=== PATIENT | male | born 1935 | race Hispanic/Latino ===

== ENCOUNTER → 2017-09-05 | Outpatient (CLI) | payer MEDICARE ==
[~2017-09-05] MED LIST: ASPI-1181 PO; ASPI-1197 PO; CETI10TA57 PO; CLOP75TA14 PO; DUTA0.5C15 PO; HYOS-28 PO; ISOS30TA6 PO; MECL-111 PO; PHEN-948 PO; PREG100C PO; RANI150T7 PO; ROSU10TA PO; TAMS0.4C32 PO; TRAM50TA4 PO; VALS160T28 PO
== END | disposition home or self-care (01) ==
LOC: SHCH 14:50
PROVIDERS: ATTEND Internal Medicine Cardiovascular Disease
DX: I42.9 Cardiomyopathy, unspecified (principal)
CPT/HCPCS: 93306

== ENCOUNTER 2017-10-11 05:30 | Day surgery (SDC) | payer MEDICARE ==
[2017-10-09 09:56] VITALS: BP 147/73
[2017-10-09 10:06] LABS: BASOPHILS % (AUTO) 0.5 % (0.0-5.0); EOSINOPHILS % (AUTO) 1.9 % (0.0-8.0); HEMATOCRIT 43.9 % (42-54); MEAN CORPUSCULAR HEMOGLOBIN 29.7 pg (27.0-33.0); MEAN CORPUSCULAR HGB CONC 33.4 g/dL (32.0-36.0); MEAN CORPUSCULAR VOLUME 88.9 fL (79-99); MONOCYTES % (AUTO) 5.4 % (3.0-13.0); NEUTROPHILS % (AUTO) 69.2 % (40.0-77.0); NUCLEATED RED BLOOD CELLS 0.1 % (0.0-0.19); PLATELET COUNT (AUTO) 183 K/uL (130-400); RED BLOOD CELL COUNT(AUTO) 4.94 MIL/uL (4.50-6.20); WHITE BLOOD COUNT (AUTO) 8.8 K/uL (4.8-10.8)
[2017-10-09 10:12] LABS: APPEARANCE,URINE Clear (CLEAR); BILIRUBIN,URINE Negative (NEGATIVE); COLOR,URINE Yellow (YELLOW); GLUCOSE, URINE (UA) Negative (NEGATIVE); KETONES,URINE Negative (NEGATIVE); LEUKOCYTE ESTERASE ,URINE Negative (NEGATIVE); NITRATE,URINE Negative (NEGATIVE); OCCULT BLOOD,URINE Negative (NEGATIVE); PROTEIN,URINE Negative (NEGATIVE); UROBILINOGEN,URINE 0.2 mg/dL (0.2-1.0)
[2017-10-09 10:14] LABS: CREATININE 1.4 mg/dL (0.5-1.5); POTASSIUM 4.8 mmol/L (3.5-5.1)
[2017-10-09 10:47] LABS: INR 1.01 (0.85-1.15); PARTIAL THROMBOPLASTIN TIME 25.8 SEC (26.3-35.5); PROTHROMBIN TIME 10.4 SEC (9.6-11.6)
[~2017-10-11] VITALS: Ht 177.8 cm; Wt 98.1 kg
[2017-10-11] VITALS (10 sets, daily range): BP systolic 108–167; BP diastolic 54–82
[~2017-10-11 05:30] MED LIST changes: -ASPI-1197 PO; -DUTA0.5C15 PO; +DUTA0.5C17 PO; -HYOS-28 PO; -ISOS30TA6 PO; -PHEN-948 PO; -VALS160T28 PO; +VALS160T29 PO
[2017-10-11] MEDS ORDERED: SODIUM CHLORIDE 0.9% 1000ML 1,000 ML IV ONE (07:15)
[2017-10-11] MEDS ORDERED: IOPAMIDOL-370 100 ML VIAL IV ONE ×2 (09:35)
[2017-10-11] MEDS ORDERED: BIVALIRUDIN 250 MG/VIAL IV ONE (09:35)
[2017-10-11] MEDS ORDERED: ISOVUE-370 50ML VIAL IV ONE (09:35)
[2017-10-11] MEDS ORDERED: LIDOCAINE HCL 2% 20ML ONE (09:35)
[2017-10-11] MEDS ORDERED: NITROGLYCERIN 5 MG/ML 10 ML VIAL IV ONE (09:35)
[2017-10-11] MEDS ORDERED: MIDAZOLAM HCL 1 MG/ML 2ML VIAL ONE (10:22)
[2017-10-11] MEDS ORDERED: FENTANYL CITRATE PF 50 MCG/1 ML 2ML VIAL ONE (10:22)
[2017-10-11] MEDS ORDERED: SODIUM CHLORIDE 0.9% 1000ML 1,000 ML IV SCH (11:44)
[2017-10-11] MEDS ORDERED: GLUCAGON 1MG KIT 1 MG ML IM PRN (11:45)
[2017-10-11] MEDS ORDERED: NITROGLYCERIN 0.4 MG SL TAB SL PRN (11:45)
[2017-10-11] MEDS ORDERED: DEXTROSE 50%-WATER 50 ML DISP.SYRIN IV PRN (11:45)
[2017-10-11] MEDS ORDERED: ACETAMINOPHEN-CODEINE 300/30MG TAB PO PRN ×2 (12:30)
== END 2017-10-11 16:40 | disposition home or self-care (01) ==
LOC: DAH 05:30
PROVIDERS: ATTEND Internal Medicine Cardiovascular Disease
DX: I25.10 Atherosclerotic heart disease of native coronary artery without angina pectoris (principal); I51.7 Cardiomegaly; I10 Essential (primary) hypertension; E78.4 Other hyperlipidemia; I49.5 Sick sinus syndrome; Z79.82 Long term (current) use of aspirin; I48.91 Unspecified atrial fibrillation; Z95.1 Presence of aortocoronary bypass graft; Z79.899 Other long term (current) drug therapy; Z82.49 Family history of ischemic heart disease and other diseases of the circulatory system; Z86.718 Personal history of other venous thrombosis and embolism
CPT/HCPCS: 36415; 71045; 80048; 81003; 85025; 85610; 85730; 93005; 93459; 99152; 99153; A4606; C1894 ×3; J0583; J1644; J2250; J3010; J3490 ×2; J7030; Q9967 ×3

== ENCOUNTER 2018-10-29 06:36 | Day surgery (SDC) | payer MEDICARE ==
[2018-10-27 08:22] VITALS: BP 174/80
[2018-10-27 08:37] LABS: BASOPHILS % (AUTO) 0.9 % (0.0-5.0); EOSINOPHILS % (AUTO) 2.1 % (0.0-8.0); HEMATOCRIT 42.7 % (42-54); LYMPHOCYTES % (AUTO) 21.6 % (21.0-51.0); MEAN CORPUSCULAR HEMOGLOBIN 29.2 pg (27.0-33.0); MEAN CORPUSCULAR HGB CONC 32.7 g/dL (32.0-36.0); MEAN CORPUSCULAR VOLUME 89.4 fL (79-99); NEUTROPHILS % (AUTO) 68.4 % (40.0-77.0); PLATELET COUNT (AUTO) 179 K/uL (130-400); RED BLOOD CELL COUNT(AUTO) 4.77 MIL/uL (4.50-6.20); RED CELL DISTRIBUTION WIDTH 15.5 % (11.0-15.5)
--- NOTE | 2018-10-27 08:50 | NUR ---
aspirin informed dr. delcid of pt taking 81mg aspirin. orders received to have pt stop aspirin after today.
[2018-10-27 08:56] LABS: INR 1.02 (0.85-1.15); PARTIAL THROMBOPLASTIN TIME 30.6 SEC (26.3-35.5); PROTHROMBIN TIME 10.7 SEC (9.6-11.6)
[~2018-10-29] VITALS: Ht 179.1 cm; Wt 103.5 kg
[~2018-10-29 06:36] MED LIST changes: -ROSU10TA PO; +ROSU10TA22 PO
[2018-10-29 07:25] VITALS: BP 180/66
[2018-10-29] MEDS ORDERED: SODIUM CHLORIDE 0.9% 1000ML 1,000 ML IV ONE (08:01)
[2018-10-29 08:05] VITALS: BP 156/74
[2018-10-29] MEDS ORDERED: LIDOCAINE HCL 1% MDV 50ML VIAL ONE (08:17)
--- NOTE | 2018-10-29 08:25 | NUR ---
TO TURNTABLE OPERATOR PT TAKEN TO TURNTABLE OPERATOR VIA BED BY LENA PRABHAKAR RN. PT STABLE.
[2018-10-29] MEDS ORDERED: OCTYL 2-CYANOACRYLATE 1 EACH TP ONE (09:07)
--- NOTE | 2018-10-29 09:30 | NUR ---
RECEIVE PT RECEIVED FROM EMBOSSING MACHINE OPERATOR VIA BED. PT STABLE. NO COMPLAINTS MADE. DENIES PAIN TO INCISION SITE RIGHT UPPER CHEST. DRESSING TO RIGHT UPPER CHEST DRY AND INTACT, SITE SOFT, NO OOZING NO HEMATOMA NOTED. INSTRUCTED PT/ TO KEEP HEAD ELEVATED. KEEP DRESSING DRY AND CLEAN. VERBALIZED UNDERSTANDING. CALL DIANA WITHIN REACH.
[2018-10-29 09:35] VITALS: BP 154/79
[2018-10-29 09:50] VITALS: BP 156/76
--- NOTE | 2018-10-29 10:10 | NUR ---
DISCHARGED PT DISCHARGED VIA WHEELCHAIR WITH . PT STABLE. NO COMPLAINTS MADE. INCISION SITE TO RIGHT UPPER CHEST REMAINS SOFT, DRESSING DRY AND INTACT, NO OOZING NO HEMATOMA NOTED. DISCHARGE INSTRUCTIONS GIVEN TO AND PT, VERBALIZED UNDERSTANDING.
== END 2018-10-29 10:10 | disposition home or self-care (01) ==
LOC: DAH 06:36
PROVIDERS: ATTEND Internal Medicine Medical Oncology
DX: T82.898A Other specified complication of vascular prosthetic devices, implants and grafts, initial encounter (principal); Z86.73 Personal history of transient ischemic attack (TIA), and cerebral infarction without residual deficits; I25.10 Atherosclerotic heart disease of native coronary artery without angina pectoris; I10 Essential (primary) hypertension; Z95.0 Presence of cardiac pacemaker; K21.9 Gastro-esophageal reflux disease without esophagitis; E78.5 Hyperlipidemia, unspecified; G62.9 Polyneuropathy, unspecified; N40.0 Benign prostatic hyperplasia without lower urinary tract symptoms; Z98.890 Other specified postprocedural states; Z95.1 Presence of aortocoronary bypass graft; Z80.3 Family history of malignant neoplasm of breast; Z80.8 Family history of malignant neoplasm of other organs or systems; Z80.41 Family history of malignant neoplasm of ovary; F32.9 Major depressive disorder, single episode, unspecified; F41.9 Anxiety disorder, unspecified; E66.01 Morbid (severe) obesity due to excess calories; Z68.32 Body mass index [BMI] 32.0-32.9, adult; Z79.899 Other long term (current) drug therapy; Z88.8 Allergy status to other drugs, medicaments and biological substances; D70.2 Other drug-induced agranulocytosis; Z85.54 Personal history of malignant neoplasm of ureter
CPT/HCPCS: 36415; 36590; 77001; 85025; 85610; 85730; J1644; J3490; J7030

== ENCOUNTER → 2020-10-10 | Outpatient (CLI) | payer MEDICARE ==
[~2020-10-10] VITALS: Ht 180.3 cm; Wt 96.2 kg
[~2020-10-10] MED LIST changes: -ASPI-1181 PO; +ASPI-1443 PO; -DUTA0.5C17 PO; +DUTA0.5C37 PO; -MECL-111 PO; +MECL-160 PO; +REGADENOSON 0.4 MG/5 ML PF SYG IVP SCH
== END | disposition home or self-care (01) ==
LOC: SHCH 08:05
PROVIDERS: ATTEND Internal Medicine Cardiovascular Disease
DX: I25.10 Atherosclerotic heart disease of native coronary artery without angina pectoris (principal)
CPT/HCPCS: 78452; 93017; 96374; A9500 ×2

== ENCOUNTER 2020-11-16 10:23 | Emergency (ER) | payer MEDICARE ==
[~2020-11-16 10:23] MED LIST changes: -ASPI-1443 PO; +CEPH500B PO; -CLOP75TA14 PO; +FAMO20TA8 PO; +LOSA100T58 PO; -RANI150T7 PO; -REGADENOSON 0.4 MG/5 ML PF SYG IVP SCH; -VALS160T29 PO
[2020-11-16 12:46] LABS: BASOPHILS % (AUTO) 0.3 % (0.0-5.0); EOSINOPHILS % (AUTO) 2.9 % (0.0-8.0); HEMATOCRIT 39.8 % (42-54); LYMPHOCYTES % (AUTO) 9.3 % (21.0-51.0); MEAN CORPUSCULAR HEMOGLOBIN 29.8 pg (27.0-33.0); MEAN CORPUSCULAR HGB CONC 32.2 g/dL (32.0-36.0); MEAN CORPUSCULAR VOLUME 92.8 fL (79-99); MONOCYTES % (AUTO) 6.9 % (3.0-13.0); NEUTROPHILS % (AUTO) 79.6 % (40.0-77.0); PLATELET COUNT (AUTO) 186 K/uL (130-400); RED BLOOD CELL COUNT(AUTO) 4.29 MIL/uL (4.50-6.20); WHITE BLOOD COUNT (AUTO) 11.4 K/uL (4.8-10.8)
[2020-11-16 12:52] LABS: CREATININE 1.4 mg/dL (0.5-1.5); POTASSIUM 4.1 mmol/L (3.5-5.1)
[2020-11-16 13:02] LABS: ALBUMIN 3.2 g/dL (3.5-5.0); BILIRUBIN,TOTAL 0.4 mg/dL (0.2-1.0); TOTAL PROTEIN, SERUM 6.7 g/dL (6.0-8.3)
[2020-11-16 13:21] LABS: APPEARANCE,URINE SL CLOUDY (CLEAR); BILIRUBIN,URINE SMALL (NEGATIVE); COLOR,URINE RED (YELLOW); GLUCOSE, URINE (UA) 100 mg/dL (NEGATIVE); KETONES,URINE 5 mg/dL (NEGATIVE); LEUKOCYTE ESTERASE ,URINE SMALL (NEGATIVE); NITRATE,URINE POSITIVE (NEGATIVE); OCCULT BLOOD,URINE LARGE (NEGATIVE); PROTEIN,URINE >=300 mg/dL (NEGATIVE)
[2020-11-16 13:39] LABS: BACTERIA,URINE Moderate /HPF (None Seen); RBC,URINE TNTC /HPF (0-1)
[2020-11-16 13:40] LABS: SQUAMOUS EPITHELIAL CELL,UR None Seen /HPF (0-2)
[2020-11-16] MEDS ORDERED: CEFTRIAXONE SODIUM 1 GM ONE (14:51)
== END 2020-11-16 17:47 | disposition home or self-care (01) ==
LOC: EDH 10:23
DX: T83.098A Other mechanical complication of other urinary catheter, initial encounter (principal); N39.0 Urinary tract infection, site not specified; R31.0 Gross hematuria; N40.0 Benign prostatic hyperplasia without lower urinary tract symptoms; I10 Essential (primary) hypertension; E78.00 Pure hypercholesterolemia, unspecified; Z91.041 Radiographic dye allergy status; Z95.0 Presence of cardiac pacemaker
CPT/HCPCS: 36415; 51702; 80053; 81001; 85025; 87088; 96374; 99284; J0696

== ENCOUNTER 2020-11-18 07:13 | Emergency (ER) | payer MEDICARE | END 2020-11-18 08:11 | disposition home or self-care (01) | LOC: EDH 07:13 | DX: T83.098A Other mechanical complication of other urinary catheter, initial encounter (principal); R31.0 Gross hematuria; E78.00 Pure hypercholesterolemia, unspecified; I10 Essential (primary) hypertension; Z91.041 Radiographic dye allergy status; Z95.0 Presence of cardiac pacemaker; Z87.891 Personal history of nicotine dependence | CPT/HCPCS: 99281 ==

== ENCOUNTER 2020-12-11 12:52 | Emergency (ER) | payer MEDICARE ==
[~2020-12-11] VITALS: Ht 180.3 cm; Wt 95.3 kg
[2020-12-11 12:55] VITALS: BP 168/74
[2020-12-11 13:22] LABS: BASOPHILS % (AUTO) 0.2 % (0.0-5.0); EOSINOPHILS % (AUTO) 0.7 % (0.0-8.0); HEMATOCRIT 41.6 % (42-54); LYMPHOCYTES % (AUTO) 20.2 % (21.0-51.0); MEAN CORPUSCULAR HEMOGLOBIN 29.2 pg (27.0-33.0); MEAN CORPUSCULAR HGB CONC 32.5 g/dL (32.0-36.0); MEAN CORPUSCULAR VOLUME 89.8 fL (79-99); MONOCYTES % (AUTO) 6.6 % (3.0-13.0); NEUTROPHILS % (AUTO) 71.8 % (40.0-77.0); PLATELET COUNT (AUTO) 205 K/uL (130-400); RED BLOOD CELL COUNT(AUTO) 4.63 MIL/uL (4.50-6.20); RED CELL DISTRIBUTION WIDTH 13.4 % (11.0-15.5); WHITE BLOOD COUNT (AUTO) 8.7 K/uL (4.8-10.8)
[2020-12-11 13:37] LABS: CREATININE 1.2 mg/dL (0.5-1.5); POTASSIUM 3.8 mmol/L (3.5-5.1)
[2020-12-11 13:44] LABS: ALBUMIN 3.6 g/dL (3.5-5.0); BILIRUBIN,TOTAL 0.6 mg/dL (0.2-1.0); TOTAL PROTEIN, SERUM 7.1 g/dL (6.0-8.3)
[2020-12-11 13:55] LABS: APPEARANCE,URINE CLEAR (CLEAR); BILIRUBIN,URINE NEGATIVE (NEGATIVE); COLOR,URINE YELLOW (YELLOW); GLUCOSE, URINE (UA) NEGATIVE (NEGATIVE); KETONES,URINE 5 mg/dL (NEGATIVE); LEUKOCYTE ESTERASE ,URINE SMALL (NEGATIVE); NITRATE,URINE NEGATIVE (NEGATIVE); OCCULT BLOOD,URINE SMALL (NEGATIVE); PROTEIN,URINE NEGATIVE (NEGATIVE); UROBILINOGEN,URINE 0.2 mg/dL (0.2-1.0)
[2020-12-11 14:01] VITALS: BP 152/68
[2020-12-11 14:22] LABS: BACTERIA,URINE Few /HPF (None Seen)
[2020-12-11 15:36] VITALS: BP 156/71
[2020-12-11] MEDS ORDERED: MORPHINE 5 MG/ML VIAL (5MG OR GREATER DOSE) IM SCH (16:00)
[2020-12-11] MEDS ORDERED: ONDANSETRON HCL 4 MG/2 ML VIAL IVP SCH (16:00)
[2020-12-11 17:26] VITALS: BP 152/71
[2020-12-11] MEDS ORDERED: ONDA4TAB4 PO (19:43)
[2020-12-11 19:52] VITALS: BP 152/71
[2020-12-11] MEDS ORDERED: HYDROCODONE/ACETAMINOPHEN 5/325 MG TAB PO ONE (20:15)
== END 2020-12-11 20:50 | disposition home or self-care (01) ==
LOC: EDH 12:52
DX: K43.9 Ventral hernia without obstruction or gangrene (principal); R11.10 Vomiting, unspecified; Z90.5 Acquired absence of kidney; Z88.8 Allergy status to other drugs, medicaments and biological substances; Z79.899 Other long term (current) drug therapy
CPT/HCPCS: 36415; 74176; 80053; 81001; 82150; 83690; 84484; 85025; 87077; 87088; 87186; 93005; 96372; 96374; 99285; J2270; J2405

== ENCOUNTER 2021-03-30 13:34 | Inpatient (IN) | payer MEDICARE ==
[~2021-03-30] VITALS: Ht 180.3 cm; Wt 97.1 kg
[~2021-03-30 13:34] MED LIST changes: +ONDA4TAB4 PO
[2021-03-30 14:00] VITALS: BP 117/58
[2021-03-30 14:17] LABS: BASOPHILS % (AUTO) 0.3 % (0.0-5.0); EOSINOPHILS % (AUTO) 0.3 % (0.0-8.0); HEMATOCRIT 47.9 % (42-54); LYMPHOCYTES % (AUTO) 13.7 % (21.0-51.0); MEAN CORPUSCULAR HEMOGLOBIN 28.9 pg (27.0-33.0); MEAN CORPUSCULAR HGB CONC 32.6 g/dL (32.0-36.0); MEAN CORPUSCULAR VOLUME 88.9 fL (79-99); MONOCYTES % (AUTO) 6.1 % (3.0-13.0); NEUTROPHILS % (AUTO) 79.2 % (40.0-77.0); PLATELET COUNT (AUTO) 189 K/uL (130-400); RED BLOOD CELL COUNT(AUTO) 5.39 MIL/uL (4.50-6.20); RED CELL DISTRIBUTION WIDTH 14.6 % (11.0-15.5); WHITE BLOOD COUNT (AUTO) 11.8 K/uL (4.8-10.8)
[2021-03-30 14:24] LABS: CREATININE 1.9 mg/dL (0.5-1.5); INR 1.02 (0.85-1.15); PROTHROMBIN TIME 11.1 SEC (9.6-11.6)
[2021-03-30 14:33] LABS: BILIRUBIN,TOTAL 0.7 mg/dL (0.2-1.0); TOTAL PROTEIN, SERUM 7.8 g/dL (6.0-8.3)
[2021-03-30 18:00] VITALS: BP 104/61
[2021-03-30] MEDS ORDERED: 0.9%NACL 1000ML 1,000 ML IV SCH (19:00)
[2021-03-30] MEDS ORDERED: ACETAMINOPHEN 325 MG TAB PO PRN ×2 (19:00)
[2021-03-30] MEDS ORDERED: ONDANSETRON 4MG INJ IV PRN (19:00)
[2021-03-30 19:21] VITALS: BP 108/69
[2021-03-30 19:47] LABS: HEMOGLOBIN A1C 6.1 % (4.0-6.0)
[2021-03-30 19:52] LABS: THYROID STIMULATING HORMONE 0.65 uIU/mL (0.36-3.74)
[2021-03-30] MEDS ORDERED: DUTA0.5C37 PO (20:26)
[2021-03-30 21:51] VITALS: BP 116/51
[2021-03-30] MEDS: TRAMADOL HCL 50 MG TABLET PO SCH (21:51)
[2021-03-30] MEDS: FAMOTIDINE 20MG TAB PO SCH (21:51)
[2021-03-30 23:03] VITALS: BP 137/68
[2021-03-30 23:20] VITALS: BP 147/75
[2021-03-30 23:24] LABS: APPEARANCE,URINE Clear (CLEAR); BILIRUBIN,URINE Negative (NEGATIVE); COLOR,URINE Yellow (YELLOW); GLUCOSE, URINE (UA) Negative (NEGATIVE); KETONES,URINE Trace mg/dL (NEGATIVE); LEUKOCYTE ESTERASE ,URINE Trace (NEGATIVE); NITRATE,URINE Negative (NEGATIVE); OCCULT BLOOD,URINE Moderate (NEGATIVE); PH,URINE 5.5 (5.0-8.0); PROTEIN,URINE POS 1+ mg/dL (NEGATIVE)
[2021-03-30] MEDS: PREGABALIN 100 MG CAPSULE PO SCH (23:36)
[2021-03-30 23:43] LABS: BACTERIA,URINE None Seen /HPF (None Seen)
[2021-03-30 23:47] LABS: SQUAMOUS EPITHELIAL CELL,UR Few /HPF (0-2)
[2021-03-31 03:19] VITALS: BP 102/54
[2021-03-31 04:17] LABS: BASOPHILS % (AUTO) 0.3 % (0.0-5.0); EOSINOPHILS % (AUTO) 1.9 % (0.0-8.0); HEMATOCRIT 42.3 % (42-54); LYMPHOCYTES % (AUTO) 19.9 % (21.0-51.0); MEAN CORPUSCULAR HEMOGLOBIN 28.6 pg (27.0-33.0); MEAN CORPUSCULAR HGB CONC 32.2 g/dL (32.0-36.0); MEAN CORPUSCULAR VOLUME 88.9 fL (79-99); MONOCYTES % (AUTO) 7.7 % (3.0-13.0); NEUTROPHILS % (AUTO) 69.6 % (40.0-77.0); PLATELET COUNT (AUTO) 190 K/uL (130-400); RED BLOOD CELL COUNT(AUTO) 4.76 MIL/uL (4.50-6.20); RED CELL DISTRIBUTION WIDTH 14.8 % (11.0-15.5); WHITE BLOOD COUNT (AUTO) 11.4 K/uL (4.8-10.8)
[2021-03-31 04:46] LABS: CREATININE 1.2 mg/dL (0.5-1.5); POTASSIUM 3.4 mmol/L (3.5-5.1)
[2021-03-31] MEDS: TAMSULOSIN HCL 0.4 MG CAP.ER.24H PO SCH (08:58)
[2021-03-31] MEDS: CETIRIZINE HCL 5 MG TABLET PO SCH (08:58)
[2021-03-31] MEDS: LOSARTAN 100 MG TABLET PO SCH (08:58)
[2021-03-31] MEDS: TRAMADOL HCL 50 MG TABLET PO SCH ×2 (08:59→21:03)
[2021-03-31 09:00] VITALS: BP 119/64
[2021-03-31 09:01] VITALS: BP 123/66
[2021-03-31] MEDS: MECLIZINE HCL 25 MG TABLET PO SCH (09:01)
[2021-03-31] MEDS: ENOXAPARIN SODIUM 30 MG/0.3 ML SQ SCH (09:01)
[2021-03-31 09:02] VITALS: BP 113/54
[2021-03-31] MEDS ORDERED: KCL 20 MEQ ERTAB PO SCH (10:30)
[2021-03-31 12:00] VITALS: BP 120/66
[2021-03-31 20:00] VITALS: BP 102/65
[2021-03-31] MEDS: FAMOTIDINE 20MG TAB PO SCH (21:03)
[2021-03-31] MEDS: PREGABALIN 100 MG CAPSULE PO SCH (21:03)
[2021-04-01] VITALS: BP 123/63
[2021-04-01 00:03] VITALS: BP 123/82
[2021-04-01 00:06] VITALS: BP 126/71
[2021-04-01 04:00] VITALS: BP 102/60
[2021-04-01 06:56] LABS: BASOPHILS % (AUTO) 0.5 % (0.0-5.0); EOSINOPHILS % (AUTO) 3.5 % (0.0-8.0); HEMATOCRIT 42.4 % (42-54); LYMPHOCYTES % (AUTO) 19.6 % (21.0-51.0); MEAN CORPUSCULAR HEMOGLOBIN 28.7 pg (27.0-33.0); MEAN CORPUSCULAR HGB CONC 31.8 g/dL (32.0-36.0); MEAN CORPUSCULAR VOLUME 90.2 fL (79-99); MONOCYTES % (AUTO) 7.2 % (3.0-13.0); NEUTROPHILS % (AUTO) 68.6 % (40.0-77.0); PLATELET COUNT (AUTO) 176 K/uL (130-400); RED CELL DISTRIBUTION WIDTH 14.9 % (11.0-15.5); WHITE BLOOD COUNT (AUTO) 10.6 K/uL (4.8-10.8)
[2021-04-01 07:16] LABS: CREATININE 1.4 mg/dL (0.5-1.5); MAGNESIUM 2.3 mg/dL (1.80-2.40); POTASSIUM 4.4 mmol/L (3.5-5.1)
[2021-04-01] MEDS: LOSARTAN 100 MG TABLET PO SCH (07:59)
[2021-04-01 08:00] VITALS: BP 110/65
[2021-04-01] MEDS: MECLIZINE HCL 25 MG TABLET PO SCH (08:01)
[2021-04-01] MEDS: CETIRIZINE HCL 5 MG TABLET PO SCH (08:01)
[2021-04-01] MEDS: TRAMADOL HCL 50 MG TABLET PO SCH (08:01)
[2021-04-01] MEDS: TAMSULOSIN HCL 0.4 MG CAP.ER.24H PO SCH (08:01)
[2021-04-01] MEDS: ENOXAPARIN SODIUM 30 MG/0.3 ML SQ SCH (08:03)
[2021-04-01] MEDS ORDERED: CEFTRIAXONE 1G VIAL IVP SCH (11:00)
[2021-04-01 12:00] VITALS: BP_SYST 123; BP_SYST 124; BP_SYST 130; BP_DIAS 64; BP_DIAS 69; BP_DIAS 75
[2021-04-02] MEDS ORDERED: LOSARTAN 100 MG TABLET PO SCH (09:00)
== END 2021-04-01 14:08 | disposition home or self-care (01) | DRG 312 ==
LOC: EDH 13:34 → OBSVTOIN 18:46 → EDHIP 18:46 → 4BH 22:12
PROVIDERS: ADMIT Internal Medicine; ATTEND Internal Medicine
PROC: 4B02XSZ Measurement of Cardiac Pacemaker, External Approach (ICD-10-PCS; principal; 2021-03-30)
DX: R55 Syncope and collapse (principal); I13.0 Hypertensive heart and chronic kidney disease with heart failure and stage 1 through stage 4 chronic kidney disease, or unspecified chronic kidney disease; I50.40 Unspecified combined systolic (congestive) and diastolic (congestive) heart failure; D72.829 Elevated white blood cell count, unspecified; N40.0 Benign prostatic hyperplasia without lower urinary tract symptoms; E78.5 Hyperlipidemia, unspecified; I25.10 Atherosclerotic heart disease of native coronary artery without angina pectoris; G89.4 Chronic pain syndrome; Z96.653 Presence of artificial knee joint, bilateral; Z20.822 Contact with and (suspected) exposure to COVID-19; N18.32 Chronic kidney disease, stage 3b; K56.41 Fecal impaction; E78.00 Pure hypercholesterolemia, unspecified; Z85.54 Personal history of malignant neoplasm of ureter; Z95.0 Presence of cardiac pacemaker; Z95.1 Presence of aortocoronary bypass graft; Z85.528 Personal history of other malignant neoplasm of kidney; Z88.8 Allergy status to other drugs, medicaments and biological substances; Z90.5 Acquired absence of kidney; Z82.49 Family history of ischemic heart disease and other diseases of the circulatory system; Z80.42 Family history of malignant neoplasm of prostate; Z80.49 Family history of malignant neoplasm of other genital organs; Z82.0 Family history of epilepsy and other diseases of the nervous system; Z82.5 Family history of asthma and other chronic lower respiratory diseases; Z82.3 Family history of stroke; Z83.3 Family history of diabetes mellitus; Z80.59 Family history of malignant neoplasm of other urinary tract organ
CPT/HCPCS: 36415; 70450; 71045; 74018; 80048; 80053; 81001; 82550; 83036; 83735; 83874; 84145; 84443; 84484; 85025; 85610; 87077; 87088; 87186; 87635; 93005; 93306; 93356; 93970; 97039; G0378; J0696; J1650

== ENCOUNTER 2021-11-12 14:28 | Inpatient (IN) | payer MEDICARE ==
[~2021-11-12] VITALS: Ht 180.3 cm; Wt 94.3 kg
[~2021-11-12 14:28] MED LIST changes: -CEPH500B PO; -ONDA4TAB4 PO
[2021-11-12 15:09] LABS: BASOPHILS % (AUTO) 0.3 % (0.0-5.0); EOSINOPHILS % (AUTO) 0.9 % (0.0-8.0); HEMATOCRIT 46.4 % (42-54); LYMPHOCYTES % (AUTO) 11.2 % (21.0-51.0); MEAN CORPUSCULAR HEMOGLOBIN 29.5 pg (27.0-33.0); MEAN CORPUSCULAR HGB CONC 32.5 g/dL (32.0-36.0); MEAN CORPUSCULAR VOLUME 90.8 fL (79-99); NEUTROPHILS % (AUTO) 81.1 % (40.0-77.0); PLATELET COUNT (AUTO) 237 K/uL (130-400); RED BLOOD CELL COUNT(AUTO) 5.11 MIL/uL (4.50-6.20); RED CELL DISTRIBUTION WIDTH 14.1 % (11.0-15.5); WHITE BLOOD COUNT (AUTO) 9.9 K/uL (4.8-10.8)
[2021-11-12 15:23] LABS: CREATININE 1.3 mg/dL (0.5-1.5); POTASSIUM 4.6 mmol/L (3.5-5.1)
[2021-11-12 15:32] LABS: ALBUMIN 3.6 g/dL (3.5-5.0); BILIRUBIN,TOTAL 0.8 mg/dL (0.2-1.0); MAGNESIUM 1.9 mg/dL (1.80-2.40); TOTAL PROTEIN, SERUM 7.3 g/dL (6.0-8.3)
[2021-11-12 15:55] LABS: B-TYPE NATRIURETIC PEPTIDE 31 pg/mL (0-100)
[2021-11-12] MEDS ORDERED: AZITHROMYCIN 250 MG TABLET PO ONE ×2 (16:00→20:39)
[2021-11-12] MEDS ORDERED: CEFTRIAXONE 1G VIAL IVP ONE (16:00)
[2021-11-12 16:44] LABS: CRP QUANTITATIVE 18.7 mg/L (0.00-9.0); MAGNESIUM 1.8 mg/dL (1.80-2.40)
[2021-11-12] MEDS ORDERED: ACETAMINOPHEN 325 MG TAB PO PRN (18:00)
[2021-11-12] MEDS ORDERED: PANTOPRAZOLE 40 MG/VIAL IVP ONE (18:00)
[2021-11-12] MEDS ORDERED: Vitamin B Complex/Vit C/Folic Acid PO ONE (18:30)
[2021-11-12 18:37] LABS: INR 1.08 (0.85-1.15); PROTHROMBIN TIME 11.7 SEC (9.6-11.6)
[2021-11-12 18:47] LABS: % IRON SATURATION 24.2 % (30-44)
[2021-11-12 19:00] LABS: THYROID STIMULATING HORMONE 0.54 uIU/mL (0.36-3.74)
[2021-11-12] MEDS ORDERED: ALBUTEROL 0.083% 2.5 MG/3 ML INH IH PRN (19:00)
[2021-11-12 19:16] LABS: LIPASE < 50 U/L (114-286)
[2021-11-12 19:59] LABS: AMMONIA 4 umol/L (11-32)
[2021-11-12 20:04] LABS: CREATINE KINASE, TOTAL 108 U/L (21-232)
[2021-11-12] MEDS ORDERED: ACETAMINOPHEN 500 MG TABLET PO PRN (20:30)
[2021-11-12] MEDS ORDERED: CYANOCOBALAMIN (VITAMIN B-12) 1000 MCG/ML 1ML VIAL IM SCH (20:30)
[2021-11-12] MEDS ORDERED: Vitamin B Complex/Vit C/Folic Acid ONE (20:38)
[2021-11-12] MEDS ORDERED: PANTOPRAZOLE 40 MG/VIAL ONE (20:39)
[2021-11-12] MEDS ORDERED: CEFTRIAXONE 1G VIAL ONE (20:39)
[2021-11-12] MEDS: THIAMINE HCL 100 MG/ML 2ML VIAL IVP SCH (20:44)
[2021-11-12] MEDS: DEXTROSE 5 % AND 0.9 % NACL 1,000 ML IV SCH (20:44)
[2021-11-12] MEDS: OSELTAMIVIR PHOSPHATE 75 MG CAP PO SCH (21:07)
[2021-11-12 22:40] LABS: APPEARANCE,URINE Clear (CLEAR); BILIRUBIN,URINE Negative (NEGATIVE); COLOR,URINE Yellow (YELLOW); GLUCOSE, URINE (UA) Negative (NEGATIVE); KETONES,URINE 40 mg/dL (NEGATIVE); LEUKOCYTE ESTERASE ,URINE Negative (NEGATIVE); NITRATE,URINE Negative (NEGATIVE); OCCULT BLOOD,URINE Small (NEGATIVE); PROTEIN,URINE Negative (NEGATIVE); UROBILINOGEN,URINE 0.2 mg/dL (0.2-1.0)
[2021-11-12 22:57] LABS: WBC,URINE None Seen /HPF (0-1)
[2021-11-12 23:04] LABS: BACTERIA,URINE None Seen /HPF (None Seen); SQUAMOUS EPITHELIAL CELL,UR None Seen /HPF (0-2)
[2021-11-13] MEDS ORDERED: DOXYCYCLINE 100MG+NS 250ML IV SCH (05:30)
[2021-11-13] MEDS: DOXYCYCLINE 100MG+NS 250ML 250 ML IV SCH ×2 (05:44→17:30)
[2021-11-13] MEDS: CEFTRIAXONE 2GM VIAL IVP SCH (05:44)
[2021-11-13 06:03] LABS: BASOPHILS % (AUTO) 0.3 % (0.0-5.0); EOSINOPHILS % (AUTO) 1.9 % (0.0-8.0); HEMATOCRIT 45.3 % (42-54); LYMPHOCYTES % (AUTO) 15.1 % (21.0-51.0); MEAN CORPUSCULAR HEMOGLOBIN 29.8 pg (27.0-33.0); MEAN CORPUSCULAR HGB CONC 33.3 g/dL (32.0-36.0); MEAN CORPUSCULAR VOLUME 89.5 fL (79-99); MONOCYTES % (AUTO) 7.7 % (3.0-13.0); NEUTROPHILS % (AUTO) 74.6 % (40.0-77.0); PLATELET COUNT (AUTO) 224 K/uL (130-400); RED BLOOD CELL COUNT(AUTO) 5.06 MIL/uL (4.50-6.20); RED CELL DISTRIBUTION WIDTH 14.2 % (11.0-15.5); WHITE BLOOD COUNT (AUTO) 10.6 K/uL (4.8-10.8)
[2021-11-13 06:24] LABS: ALBUMIN 3.3 g/dL (3.5-5.0); BILIRUBIN,TOTAL 0.7 mg/dL (0.2-1.0); CREATININE 1.2 mg/dL (0.5-1.5); MAGNESIUM 2.1 mg/dL (1.80-2.40); TOTAL PROTEIN, SERUM 6.8 g/dL (6.0-8.3)
[2021-11-13] MEDS: PANTOPRAZOLE 40 MG/VIAL IVP SCH (08:14)
[2021-11-13] MEDS: OSELTAMIVIR PHOSPHATE 75 MG CAP PO SCH ×2 (08:14→21:36)
[2021-11-13] MEDS: Vitamin B Complex/Vit C/Folic Acid PO SCH (08:14)
[2021-11-13] MEDS: BUDESONIDE 0.5 MG/2 ML INH IH SCH ×2 (08:26→18:27)
[2021-11-13] MEDS: DEXTROSE 5 % AND 0.9 % NACL 1,000 ML IV SCH ×2 (11:09→18:02)
[2021-11-13] MEDS ORDERED: TAMSULOSIN HCL 0.4 MG CAP.ER.24H PO SCH (11:30)
[2021-11-13] MEDS ORDERED: FINASTERIDE 5 MG TABLET PO SCH (11:30)
[2021-11-13] MEDS ORDERED: MECL-160 PO (15:49)
[2021-11-13] MEDS ORDERED: AEC81 PO (15:49)
[2021-11-13] MEDS ORDERED: LOSARTAN 25 MG TABLET PO ONE (16:00)
[2021-11-13] MEDS ORDERED: LABETALOL 20MG VIAL IV PRN (16:00)
[2021-11-13] MEDS ORDERED: CARVEDILOL 6.25 MG TABLET PO ONE (16:00)
[2021-11-13 16:20] VITALS: BP 138/71
[2021-11-13] MEDS: DEXAMETHASONE SOD PHOSPHATE 4 MG/ML 1ML VIAL IV SCH (17:31)
[2021-11-13] MEDS ORDERED: HYDROMORPHONE 0.5 MG SYG (0.5MG/0.5ML) IVP PRN ×2 (18:30)
[2021-11-13] MEDS: THIAMINE HCL 100 MG/ML 2ML VIAL IVP SCH (18:52)
[2021-11-13 19:30] VITALS: BP 130/73
[2021-11-13] MEDS: CARVEDILOL 6.25 MG TABLET PO SCH (21:36)
[2021-11-14] VITALS: BP 146/82
[2021-11-14] MEDS: DEXAMETHASONE SOD PHOSPHATE 4 MG/ML 1ML VIAL IV SCH ×4 (00:33→17:29)
[2021-11-14 04:00] VITALS: BP 146/74
[2021-11-14] MEDS: CEFTRIAXONE 2GM VIAL IVP SCH (05:37)
[2021-11-14] MEDS: DOXYCYCLINE 100MG+NS 250ML 250 ML IV SCH ×2 (05:37→17:28)
[2021-11-14] MEDS: BUDESONIDE 0.5 MG/2 ML INH IH SCH ×2 (07:35→18:36)
[2021-11-14 08:28] VITALS: BP 149/71
[2021-11-14] MEDS: PANTOPRAZOLE 40 MG/VIAL IVP SCH (10:05)
[2021-11-14] MEDS: CARVEDILOL 6.25 MG TABLET PO SCH ×2 (10:06→22:34)
[2021-11-14] MEDS: FINASTERIDE 5 MG TABLET PO SCH (10:07)
[2021-11-14] MEDS: Vitamin B Complex/Vit C/Folic Acid PO SCH (10:07)
[2021-11-14] MEDS: OSELTAMIVIR PHOSPHATE 75 MG CAP PO SCH ×2 (10:08→22:33)
[2021-11-14] MEDS: LOSARTAN 25 MG TABLET PO SCH (10:09)
[2021-11-14] MEDS: TAMSULOSIN HCL 0.4 MG CAP.ER.24H PO SCH (10:09)
[2021-11-14] MEDS ORDERED: ISOVUE-M 200 20 ML VIAL IT ONE (11:38)
[2021-11-14 11:57] VITALS: BP 161/81
[2021-11-14] MEDS: LIDOCAINE 5% TOPICAL PATCH TP SCH (12:50)
[2021-11-14] MEDS: BACLOFEN 10 MG TABLET PO SCH ×2 (12:52→22:34)
[2021-11-14] MEDS ORDERED: HYDROMORPHONE 0.5 MG SYG (0.5MG/0.5ML) IVP PRN (14:30)
[2021-11-14] MEDS: DEXTROSE 5 % AND 0.9 % NACL 1,000 ML IV SCH (17:29)
[2021-11-14] MEDS: HYDROMORPHONE 1 MG INJ IVP PRN (17:30)
[2021-11-14 18:09] VITALS: BP 135/74
[2021-11-14] MEDS: THIAMINE HCL 100 MG/ML 2ML VIAL IVP SCH (18:39)
[2021-11-14] MEDS ORDERED: PREDNISONE 20 MG TABLET PO ONE (19:00)
[2021-11-14 20:00] VITALS: BP 155/69
[2021-11-14] MEDS: GABAPENTIN 300 MG CAPSULE PO SCH (22:34)
[2021-11-15] VITALS (16 sets, daily range): BP systolic 113–147; BP diastolic 30–78
[2021-11-15] MEDS: DEXAMETHASONE SOD PHOSPHATE 4 MG/ML 1ML VIAL IV SCH ×4 (00:17→17:56)
[2021-11-15] MEDS ORDERED: PREDNISONE 20 MG TABLET PO ONE ×2 (03:00→07:00)
[2021-11-15] MEDS: CEFTRIAXONE 2GM VIAL IVP SCH (04:39)
[2021-11-15] MEDS: DOXYCYCLINE 100MG+NS 250ML 250 ML IV SCH ×2 (04:59→17:54)
[2021-11-15] MEDS: BUDESONIDE 0.5 MG/2 ML INH IH SCH ×2 (06:58→18:27)
[2021-11-15] MEDS ORDERED: DIPHENHYDRAMINE HCL 25 MG CAPSULE PO ONE (07:00)
[2021-11-15] MEDS: LIDOCAINE 5% TOPICAL PATCH TP SCH ×2 (09:00→09:20)
[2021-11-15] MEDS: PANTOPRAZOLE 40 MG/VIAL IVP SCH (09:20)
[2021-11-15] MEDS: FINASTERIDE 5 MG TABLET PO SCH (09:21)
[2021-11-15] MEDS: GABAPENTIN 300 MG CAPSULE PO SCH ×2 (09:21→21:34)
[2021-11-15] MEDS: Vitamin B Complex/Vit C/Folic Acid PO SCH (09:21)
[2021-11-15] MEDS: BACLOFEN 10 MG TABLET PO SCH ×2 (09:21→21:34)
[2021-11-15] MEDS: OSELTAMIVIR PHOSPHATE 75 MG CAP PO SCH ×2 (09:21→21:34)
[2021-11-15] MEDS: LOSARTAN 25 MG TABLET PO SCH (09:21)
[2021-11-15] MEDS: TAMSULOSIN HCL 0.4 MG CAP.ER.24H PO SCH (09:21)
[2021-11-15] MEDS: CARVEDILOL 6.25 MG TABLET PO SCH ×2 (09:22→21:35)
[2021-11-15] MEDS ORDERED: DEXAMETHASONE 4 MG TAB ONE (09:25)
[2021-11-15] MEDS ORDERED: DIPHENHYDRAMINE HCL 25 MG CAPSULE ONE (09:32)
[2021-11-15] MEDS ORDERED: PREDNISONE 20 MG TABLET ONE (09:35)
[2021-11-15] MEDS: HYDROMORPHONE 1 MG INJ IVP PRN (14:15)
[2021-11-15] MEDS ORDERED: LIDOCAINE HCL MPF 1% 5ML VIAL ONE (16:28)
[2021-11-15] MEDS: THIAMINE HCL 100 MG/ML 2ML VIAL IVP SCH (18:23)
[2021-11-15] MEDS: DEXTROSE 5 % AND 0.9 % NACL 1,000 ML IV SCH ×2 (21:49→23:00)
[2021-11-16] MEDS: DEXAMETHASONE SOD PHOSPHATE 4 MG/ML 1ML VIAL IV SCH ×4 (00:24→22:23)
[2021-11-16 04:30] VITALS: BP 127/69
[2021-11-16] MEDS: CEFTRIAXONE 2GM VIAL IVP SCH (05:03)
[2021-11-16] MEDS: DOXYCYCLINE 100MG+NS 250ML 250 ML IV SCH ×2 (05:40→18:08)
[2021-11-16] MEDS: BUDESONIDE 0.5 MG/2 ML INH IH SCH ×2 (06:42→18:15)
[2021-11-16 07:00] VITALS: BP 142/78
[2021-11-16 08:36] LABS: BASOPHILS % (AUTO) 0.1 % (0.0-5.0); EOSINOPHILS % (AUTO) 0.1 % (0.0-8.0); HEMATOCRIT 45.7 % (42-54); LYMPHOCYTES % (AUTO) 4.5 % (21.0-51.0); MEAN CORPUSCULAR HEMOGLOBIN 29.8 pg (27.0-33.0); MEAN CORPUSCULAR VOLUME 90.3 fL (79-99); MONOCYTES % (AUTO) 2.4 % (3.0-13.0); PLATELET COUNT (AUTO) 206 K/uL (130-400); RED BLOOD CELL COUNT(AUTO) 5.06 MIL/uL (4.50-6.20); RED CELL DISTRIBUTION WIDTH 14.3 % (11.0-15.5); WHITE BLOOD COUNT (AUTO) 15.9 K/uL (4.8-10.8)
[2021-11-16 08:45] LABS: CARBON DIOXIDE 27 mmol/L (21-32); CHLORIDE 105 mmol/L (101-111); CREATININE 1.3 mg/dL (0.5-1.5); GLOMERULAR FILTR. RATE CALC 56 mL/min (>60); GLUCOSE,RANDOM 150 mg/dL (70-105); POTASSIUM 4.3 mmol/L (3.5-5.1); SODIUM SERUM 141 mmol/L (136-145); UREA NITROGEN, BLOOD 26 mg/dL (7-18)
[2021-11-16 08:48] LABS: CRP QUANTITATIVE < 2.00 mg/L (0.00-9.0)
[2021-11-16] MEDS: TAMSULOSIN HCL 0.4 MG CAP.ER.24H PO SCH (09:47)
[2021-11-16] MEDS: LOSARTAN 25 MG TABLET PO SCH (09:47)
[2021-11-16] MEDS: GABAPENTIN 300 MG CAPSULE PO SCH ×2 (09:47→21:07)
[2021-11-16] MEDS: CARVEDILOL 6.25 MG TABLET PO SCH ×2 (09:48→21:08)
[2021-11-16] MEDS: OSELTAMIVIR PHOSPHATE 75 MG CAP PO SCH ×2 (09:48→21:07)
[2021-11-16] MEDS: BACLOFEN 10 MG TABLET PO SCH ×2 (09:48→21:07)
[2021-11-16] MEDS: FINASTERIDE 5 MG TABLET PO SCH (09:48)
[2021-11-16] MEDS: PANTOPRAZOLE 40 MG/VIAL IVP SCH (09:49)
[2021-11-16] MEDS: Vitamin B Complex/Vit C/Folic Acid PO SCH (09:49)
[2021-11-16] MEDS: LIDOCAINE 5% TOPICAL PATCH TP SCH (09:49)
[2021-11-16 09:56] LABS: ERYTHROCYTE SEDIMENTATION RATE 3 MM/HR (0-20)
[2021-11-16 11:33] VITALS: BP 126/70
[2021-11-16 15:45] VITALS: BP 149/68
[2021-11-16] MEDS: THIAMINE HCL 100 MG/ML 2ML VIAL IVP SCH (18:08)
[2021-11-16 20:00] VITALS: BP 131/83
[2021-11-17] MEDS ORDERED: DEXTROSE 5 % AND 0.9 % NACL 1,000 ML IV ONE (00:16)
[2021-11-17 00:32] VITALS: BP 153/83
[2021-11-17 04:00] VITALS: BP 134/73
[2021-11-17] MEDS: CEFTRIAXONE 2GM VIAL IVP SCH (05:06)
[2021-11-17] MEDS: DOXYCYCLINE 100MG+NS 250ML 250 ML IV SCH ×2 (05:06→17:42)
[2021-11-17] MEDS: DEXAMETHASONE SOD PHOSPHATE 4 MG/ML 1ML VIAL IV SCH ×3 (06:04→21:13)
[2021-11-17] MEDS: BUDESONIDE 0.5 MG/2 ML INH IH SCH ×2 (06:45→19:10)
[2021-11-17 08:00] VITALS: BP 140/61
[2021-11-17] MEDS: Vitamin B Complex/Vit C/Folic Acid PO SCH (11:10)
[2021-11-17] MEDS: BACLOFEN 10 MG TABLET PO SCH ×2 (11:10→21:13)
[2021-11-17] MEDS: LOSARTAN 25 MG TABLET PO SCH (11:10)
[2021-11-17] MEDS: TAMSULOSIN HCL 0.4 MG CAP.ER.24H PO SCH (11:10)
[2021-11-17] MEDS: CARVEDILOL 6.25 MG TABLET PO SCH ×2 (11:11→21:12)
[2021-11-17] MEDS: GABAPENTIN 300 MG CAPSULE PO SCH ×2 (11:11→21:13)
[2021-11-17] MEDS: OSELTAMIVIR PHOSPHATE 75 MG CAP PO SCH (11:12)
[2021-11-17] MEDS: FINASTERIDE 5 MG TABLET PO SCH (11:13)
[2021-11-17] MEDS: PANTOPRAZOLE 40 MG/VIAL IVP SCH (11:13)
[2021-11-17] MEDS: LIDOCAINE 5% TOPICAL PATCH TP SCH (11:19)
[2021-11-17 11:29] VITALS: BP 146/84
[2021-11-17] MEDS ORDERED: LACTULOSE 20 GM/30 ML UDCUP PO SCH (12:00)
[2021-11-17] MEDS: SENNOSIDES 8.6 MG TABLET PO SCH (12:28)
[2021-11-17 16:13] VITALS: BP 143/56
[2021-11-17] MEDS: THIAMINE HCL 100 MG/ML 2ML VIAL IVP SCH (17:42)
[2021-11-17 20:00] VITALS: BP 179/72
[2021-11-17] MEDS ORDERED: TRAMADOL HCL 50 MG TABLET PO PRN (21:00)
[2021-11-17] MEDS ORDERED: TRAMADOL HCL 50 MG TABLET PO SCH (21:00)
[2021-11-17] MEDS: FAMOTIDINE 20MG TAB PO SCH (21:12)
[2021-11-18] VITALS: BP 150/69
[2021-11-18 04:27] VITALS: BP 128/72
[2021-11-18] MEDS ORDERED: 0.9% NACL 250ML 250 ML ONE ×2 (04:56→17:59)
[2021-11-18 04:57] LABS: BASOPHILS % (AUTO) 0.2 % (0.0-5.0); EOSINOPHILS % (AUTO) 0.1 % (0.0-8.0); HEMATOCRIT 42.4 % (42-54); LYMPHOCYTES % (AUTO) 5.9 % (21.0-51.0); MEAN CORPUSCULAR HEMOGLOBIN 29.9 pg (27.0-33.0); MEAN CORPUSCULAR HGB CONC 33.7 g/dL (32.0-36.0); MEAN CORPUSCULAR VOLUME 88.5 fL (79-99); NEUTROPHILS % (AUTO) 89.3 % (40.0-77.0); PLATELET COUNT (AUTO) 164 K/uL (130-400); RED BLOOD CELL COUNT(AUTO) 4.79 MIL/uL (4.50-6.20); WHITE BLOOD COUNT (AUTO) 12.9 K/uL (4.8-10.8)
[2021-11-18] MEDS: DOXYCYCLINE 100MG+NS 250ML 250 ML IV SCH ×2 (05:07→18:12)
[2021-11-18] MEDS: DEXAMETHASONE SOD PHOSPHATE 4 MG/ML 1ML VIAL IV SCH ×3 (05:07→22:27)
[2021-11-18] MEDS: CEFTRIAXONE 2GM VIAL IVP SCH (05:07)
[2021-11-18 05:21] LABS: ALBUMIN 2.8 g/dL (3.5-5.0); BILIRUBIN,TOTAL 0.7 mg/dL (0.2-1.0); CREATININE 1.1 mg/dL (0.5-1.5); POTASSIUM 4.3 mmol/L (3.5-5.1); TOTAL PROTEIN, SERUM 5.4 g/dL (6.0-8.3)
[2021-11-18] MEDS: BUDESONIDE 0.5 MG/2 ML INH IH SCH ×2 (06:48→20:37)
[2021-11-18 08:00] VITALS: BP 153/75
[2021-11-18] MEDS: **HM** DUTASTERIDE 0.5MG PO SCH (09:00)
[2021-11-18] MEDS: LIDOCAINE 5% TOPICAL PATCH TP SCH ×2 (09:00→14:01)
[2021-11-18] MEDS: Vitamin B Complex/Vit C/Folic Acid PO SCH (10:06)
[2021-11-18] MEDS: ASPIRIN 81 MG EC TAB PO SCH (10:06)
[2021-11-18] MEDS: FAMOTIDINE 20MG TAB PO SCH ×2 (10:07→22:03)
[2021-11-18] MEDS: GABAPENTIN 300 MG CAPSULE PO SCH ×2 (10:07→22:02)
[2021-11-18] MEDS: ATORVASTATIN 20 MG TABLET PO SCH (10:08)
[2021-11-18] MEDS: BACLOFEN 10 MG TABLET PO SCH ×2 (10:08→22:03)
[2021-11-18] MEDS: TAMSULOSIN HCL 0.4 MG CAP.ER.24H PO SCH (10:09)
[2021-11-18] MEDS: FINASTERIDE 5 MG TABLET PO SCH (10:09)
[2021-11-18] MEDS: PANTOPRAZOLE 40 MG/VIAL IVP SCH (10:10)
[2021-11-18] MEDS: LOSARTAN 25 MG TABLET PO SCH (10:10)
[2021-11-18] MEDS: CARVEDILOL 6.25 MG TABLET PO SCH ×2 (10:11→22:27)
[2021-11-18] MEDS: SENNOSIDES 8.6 MG TABLET PO SCH (12:00)
[2021-11-18 12:15] VITALS: BP 139/64
[2021-11-18 15:58] VITALS: BP 137/67
[2021-11-18] MEDS: TRAMADOL HCL 50 MG TABLET PO PRN (16:20)
[2021-11-18] MEDS: THIAMINE HCL 100 MG/ML 2ML VIAL IVP SCH (18:00)
[2021-11-18 19:00] VITALS: BP 159/80
[2021-11-19] VITALS: BP 145/68
[2021-11-19 04:00] VITALS: BP 149/72
[2021-11-19] MEDS ORDERED: 0.9% NACL 250ML 250 ML ONE ×2 (04:58→18:33)
[2021-11-19] MEDS: DOXYCYCLINE 100MG+NS 250ML 250 ML IV SCH ×2 (05:21→18:29)
[2021-11-19] MEDS: CEFTRIAXONE 2GM VIAL IVP SCH (05:21)
[2021-11-19] MEDS: DEXAMETHASONE SOD PHOSPHATE 4 MG/ML 1ML VIAL IV SCH ×2 (05:21→22:09)
[2021-11-19] MEDS: BUDESONIDE 0.5 MG/2 ML INH IH SCH ×2 (06:52→19:37)
[2021-11-19 07:50] VITALS: BP 151/84
[2021-11-19] MEDS: Vitamin B Complex/Vit C/Folic Acid PO SCH (09:27)
[2021-11-19] MEDS: TAMSULOSIN HCL 0.4 MG CAP.ER.24H PO SCH (09:28)
[2021-11-19] MEDS: FINASTERIDE 5 MG TABLET PO SCH (09:29)
[2021-11-19] MEDS: GABAPENTIN 300 MG CAPSULE PO SCH ×2 (09:30→22:08)
[2021-11-19] MEDS: BACLOFEN 10 MG TABLET PO SCH ×2 (09:31→22:08)
[2021-11-19] MEDS: LOSARTAN 25 MG TABLET PO SCH (09:31)
[2021-11-19] MEDS: CARVEDILOL 6.25 MG TABLET PO SCH ×2 (09:32→22:08)
[2021-11-19] MEDS: FAMOTIDINE 20MG TAB PO SCH ×2 (09:33→22:08)
[2021-11-19] MEDS: ATORVASTATIN 20 MG TABLET PO SCH (09:33)
[2021-11-19] MEDS: ASPIRIN 81 MG EC TAB PO SCH (09:34)
[2021-11-19] MEDS: **HM** DUTASTERIDE 0.5MG PO SCH (09:35)
[2021-11-19] MEDS: PANTOPRAZOLE 40 MG/VIAL IVP SCH (09:35)
[2021-11-19 11:31] VITALS: BP 150/89
[2021-11-19] MEDS: SENNOSIDES 8.6 MG TABLET PO SCH (12:00)
[2021-11-19 16:01] VITALS: BP 114/69
[2021-11-19] MEDS: THIAMINE HCL 100 MG/ML 2ML VIAL IVP SCH (18:00)
[2021-11-19 19:30] VITALS: BP 147/76
[2021-11-20 00:07] VITALS: BP 129/69
[2021-11-20 04:30] VITALS: BP 151/76
[2021-11-20 05:26] LABS: INR 1.08 (0.85-1.15); PROTHROMBIN TIME 11.7 SEC (9.6-11.6)
[2021-11-20] MEDS: BUDESONIDE 0.5 MG/2 ML INH IH SCH ×2 (07:47→18:11)
[2021-11-20 08:00] VITALS: BP 140/82
[2021-11-20] MEDS: GABAPENTIN 300 MG CAPSULE PO SCH ×2 (08:56→20:08)
[2021-11-20] MEDS: TAMSULOSIN HCL 0.4 MG CAP.ER.24H PO SCH (08:56)
[2021-11-20] MEDS: PANTOPRAZOLE 40 MG/VIAL IVP SCH (08:56)
[2021-11-20] MEDS: DEXAMETHASONE SOD PHOSPHATE 4 MG/ML 1ML VIAL IV SCH ×2 (08:56→20:07)
[2021-11-20] MEDS: BACLOFEN 10 MG TABLET PO SCH ×2 (08:56→20:08)
[2021-11-20] MEDS: ASPIRIN 81 MG EC TAB PO SCH (08:57)
[2021-11-20] MEDS: FINASTERIDE 5 MG TABLET PO SCH (08:57)
[2021-11-20] MEDS: LOSARTAN 25 MG TABLET PO SCH (08:57)
[2021-11-20] MEDS: Vitamin B Complex/Vit C/Folic Acid PO SCH (08:57)
[2021-11-20] MEDS: ATORVASTATIN 20 MG TABLET PO SCH (08:57)
[2021-11-20] MEDS: CARVEDILOL 6.25 MG TABLET PO SCH ×2 (08:57→20:08)
[2021-11-20] MEDS: FAMOTIDINE 20MG TAB PO SCH ×2 (08:57→20:08)
[2021-11-20] MEDS: **HM** DUTASTERIDE 0.5MG PO SCH (09:00)
[2021-11-20 12:00] VITALS: BP 132/76
[2021-11-20] MEDS: SENNOSIDES 8.6 MG TABLET PO SCH (12:00)
[2021-11-20 16:00] VITALS: BP 134/74
[2021-11-20] MEDS: THIAMINE HCL 100 MG/ML 2ML VIAL IVP SCH (18:00)
[2021-11-20 20:00] VITALS: BP 127/68
[2021-11-21] VITALS (7 sets, daily range): BP systolic 113–141; BP diastolic 64–78
[2021-11-21] MEDS: TRAMADOL HCL 50 MG TABLET PO PRN (00:39)
[2021-11-21 05:44] LABS: BASOPHILS % (AUTO) 0.2 % (0.0-5.0); EOSINOPHILS % (AUTO) 0.1 % (0.0-8.0); HEMATOCRIT 47.3 % (42-54); LYMPHOCYTES % (AUTO) 4.7 % (21.0-51.0); MEAN CORPUSCULAR HEMOGLOBIN 28.9 pg (27.0-33.0); MEAN CORPUSCULAR HGB CONC 33.2 g/dL (32.0-36.0); MEAN CORPUSCULAR VOLUME 87.1 fL (79-99); MONOCYTES % (AUTO) 4.3 % (3.0-13.0); PLATELET COUNT (AUTO) 160 K/uL (130-400); RED BLOOD CELL COUNT(AUTO) 5.43 MIL/uL (4.50-6.20); RED CELL DISTRIBUTION WIDTH 13.8 % (11.0-15.5); WHITE BLOOD COUNT (AUTO) 17.8 K/uL (4.8-10.8)
[2021-11-21 06:03] LABS: ALBUMIN 2.8 g/dL (3.5-5.0); BILIRUBIN,TOTAL 1.1 mg/dL (0.2-1.0); CREATININE 0.9 mg/dL (0.5-1.5); MAGNESIUM 1.9 mg/dL (1.80-2.40); POTASSIUM 4.6 mmol/L (3.5-5.1); TOTAL PROTEIN, SERUM 5.5 g/dL (6.0-8.3)
[2021-11-21] MEDS: BUDESONIDE 0.5 MG/2 ML INH IH SCH ×2 (06:42→18:54)
[2021-11-21] MEDS: FINASTERIDE 5 MG TABLET PO SCH (08:09)
[2021-11-21] MEDS: DEXAMETHASONE SOD PHOSPHATE 4 MG/ML 1ML VIAL IV SCH (08:09)
[2021-11-21] MEDS: GABAPENTIN 300 MG CAPSULE PO SCH ×2 (08:10→20:11)
[2021-11-21] MEDS: BACLOFEN 10 MG TABLET PO SCH ×2 (08:10→20:12)
[2021-11-21] MEDS: TAMSULOSIN HCL 0.4 MG CAP.ER.24H PO SCH (08:10)
[2021-11-21] MEDS: Vitamin B Complex/Vit C/Folic Acid PO SCH (08:10)
[2021-11-21] MEDS: PANTOPRAZOLE 40 MG/VIAL IVP SCH (08:10)
[2021-11-21] MEDS: ASPIRIN 81 MG EC TAB PO SCH (08:10)
[2021-11-21] MEDS: LOSARTAN 25 MG TABLET PO SCH (08:11)
[2021-11-21] MEDS: ATORVASTATIN 20 MG TABLET PO SCH (08:11)
[2021-11-21] MEDS: CARVEDILOL 6.25 MG TABLET PO SCH ×2 (08:11→20:12)
[2021-11-21] MEDS: FAMOTIDINE 20MG TAB PO SCH ×2 (08:11→20:12)
[2021-11-21] MEDS: **HM** DUTASTERIDE 0.5MG PO SCH (08:12)
[2021-11-21] MEDS: SENNOSIDES 8.6 MG TABLET PO SCH (08:16)
[2021-11-21] MEDS: THIAMINE HCL 100 MG/ML 2ML VIAL IVP SCH (08:16)
[2021-11-21 11:19] LABS: APPEARANCE,CSF SLIGHTLY CLOUDY (CLEAR); COLOR,CSF STRAW (COLORLESS); CSF TUBE NUMBER 2; WHITE BLOOD CELL1,CSF 3 CMM (0-5)
[2021-11-21 11:20] LABS: GLUCOSE, CSF 66 mg/dL (40-70); RED BLOOD CELL1,CSF 875 CMM (0-0); TOTAL PROTEIN, CSF 240 mg/dL (15-45)
[2021-11-21 11:27] LABS: APPEARANCE2,CSF CLEAR (CLEAR); COLOR2,CSF STRAW (COLORLESS); CSF 2ND TUBE NUMBER 3
[2021-11-22 04:00] VITALS: BP 126/73
[2021-11-22 05:59] LABS: BASOPHILS % (AUTO) 0.2 % (0.0-5.0); EOSINOPHILS % (AUTO) 0.1 % (0.0-8.0); HEMATOCRIT 48.9 % (42-54); LYMPHOCYTES % (AUTO) 4.5 % (21.0-51.0); MEAN CORPUSCULAR HEMOGLOBIN 29.3 pg (27.0-33.0); MEAN CORPUSCULAR HGB CONC 33.7 g/dL (32.0-36.0); MEAN CORPUSCULAR VOLUME 86.7 fL (79-99); MONOCYTES % (AUTO) 7.1 % (3.0-13.0); NEUTROPHILS % (AUTO) 85.7 % (40.0-77.0); PLATELET COUNT (AUTO) 163 K/uL (130-400); RED BLOOD CELL COUNT(AUTO) 5.64 MIL/uL (4.50-6.20); RED CELL DISTRIBUTION WIDTH 13.8 % (11.0-15.5); WHITE BLOOD COUNT (AUTO) 23.5 K/uL (4.8-10.8)
[2021-11-22 06:10] LABS: ALBUMIN 2.9 g/dL (3.5-5.0); BILIRUBIN,TOTAL 1.1 mg/dL (0.2-1.0); CREATININE 1.2 mg/dL (0.5-1.5); POTASSIUM 4.4 mmol/L (3.5-5.1); TOTAL PROTEIN, SERUM 5.6 g/dL (6.0-8.3)
[2021-11-22] MEDS: BUDESONIDE 0.5 MG/2 ML INH IH SCH ×2 (06:55→18:40)
[2021-11-22] MEDS: SENNOSIDES 8.6 MG TABLET PO SCH (07:31)
[2021-11-22] MEDS: THIAMINE HCL 100 MG/ML 2ML VIAL IVP SCH (07:32)
[2021-11-22 08:39] VITALS: BP 148/73
[2021-11-22] MEDS: ASPIRIN 81 MG EC TAB PO SCH (08:40)
[2021-11-22] MEDS: FAMOTIDINE 20MG TAB PO SCH ×2 (08:40→23:20)
[2021-11-22] MEDS: CARVEDILOL 6.25 MG TABLET PO SCH ×2 (08:40→23:21)
[2021-11-22] MEDS: Vitamin B Complex/Vit C/Folic Acid PO SCH (08:41)
[2021-11-22] MEDS: BACLOFEN 10 MG TABLET PO SCH ×2 (08:41→23:22)
[2021-11-22] MEDS: PANTOPRAZOLE 40 MG/VIAL IVP SCH (08:41)
[2021-11-22] MEDS: LOSARTAN 25 MG TABLET PO SCH (08:41)
[2021-11-22] MEDS: ATORVASTATIN 20 MG TABLET PO SCH (08:41)
[2021-11-22] MEDS: FINASTERIDE 5 MG TABLET PO SCH (08:41)
[2021-11-22] MEDS: GABAPENTIN 300 MG CAPSULE PO SCH ×2 (08:41→23:21)
[2021-11-22] MEDS: TAMSULOSIN HCL 0.4 MG CAP.ER.24H PO SCH (08:41)
[2021-11-22] MEDS: **HM** DUTASTERIDE 0.5MG PO SCH (08:42)
[2021-11-22] MEDS ORDERED: DEXAMETHASONE SOD PHOSPHATE 4 MG/ML 1ML VIAL IV SCH (09:00)
[2021-11-22 11:10] VITALS: BP 113/70
[2021-11-22 15:22] VITALS: BP 110/58
[2021-11-22 19:43] VITALS: BP 120/66
[2021-11-22 23:28] VITALS: BP 137/71
[2021-11-23 03:30] VITALS: BP 131/76
[2021-11-23] MEDS: CARVEDILOL 6.25 MG TABLET PO SCH ×2 (05:46→22:36)
[2021-11-23 06:22] LABS: BASOPHILS % (AUTO) 0.2 % (0.0-5.0); EOSINOPHILS % (AUTO) 0.3 % (0.0-8.0); HEMATOCRIT 46.4 % (42-54); MEAN CORPUSCULAR HEMOGLOBIN 28.7 pg (27.0-33.0); MEAN CORPUSCULAR VOLUME 87.1 fL (79-99); MONOCYTES % (AUTO) 6.4 % (3.0-13.0); NEUTROPHILS % (AUTO) 86.1 % (40.0-77.0); PLATELET COUNT (AUTO) 157 K/uL (130-400); RED BLOOD CELL COUNT(AUTO) 5.33 MIL/uL (4.50-6.20); RED CELL DISTRIBUTION WIDTH 13.9 % (11.0-15.5); WHITE BLOOD COUNT (AUTO) 22.5 K/uL (4.8-10.8)
[2021-11-23] MEDS: BUDESONIDE 0.5 MG/2 ML INH IH SCH ×2 (06:29→18:21)
[2021-11-23 06:33] LABS: MAGNESIUM 1.9 mg/dL (1.80-2.40); POTASSIUM 4.3 mmol/L (3.5-5.1)
[2021-11-23] MEDS: TAMSULOSIN HCL 0.4 MG CAP.ER.24H PO SCH (07:34)
[2021-11-23] MEDS: ATORVASTATIN 20 MG TABLET PO SCH (07:34)
[2021-11-23] MEDS: Vitamin B Complex/Vit C/Folic Acid PO SCH (07:34)
[2021-11-23] MEDS: ASPIRIN 81 MG EC TAB PO SCH (07:34)
[2021-11-23] MEDS: **HM** DUTASTERIDE 0.5MG PO SCH (07:34)
[2021-11-23] MEDS: LOSARTAN 25 MG TABLET PO SCH (07:34)
[2021-11-23] MEDS: BACLOFEN 10 MG TABLET PO SCH ×2 (07:34→22:37)
[2021-11-23 07:35] VITALS: BP 155/66
[2021-11-23] MEDS: GABAPENTIN 300 MG CAPSULE PO SCH ×2 (07:35→22:37)
[2021-11-23] MEDS: FINASTERIDE 5 MG TABLET PO SCH (07:35)
[2021-11-23] MEDS: FAMOTIDINE 20MG TAB PO SCH ×2 (07:35→22:36)
[2021-11-23] MEDS: PANTOPRAZOLE 40 MG/VIAL IVP SCH (07:55)
[2021-11-23 11:45] VITALS: BP 135/84
[2021-11-23] MEDS: SENNOSIDES 8.6 MG TABLET PO SCH (11:51)
[2021-11-23 16:00] VITALS: BP 145/75
[2021-11-23] MEDS: THIAMINE HCL 100 MG/ML 2ML VIAL IVP SCH (17:31)
[2021-11-23 19:40] VITALS: BP 137/65
[2021-11-23 23:34] VITALS: BP 121/63
[2021-11-24 03:34] VITALS: BP 119/67
[2021-11-24] MEDS: BUDESONIDE 0.5 MG/2 ML INH IH SCH (06:28)
[2021-11-24] MEDS ORDERED: DEXAMETHASONE 4 MG TAB PO SCH (07:00)
[2021-11-24 07:55] VITALS: BP 125/70
[2021-11-24] MEDS: ASPIRIN 81 MG EC TAB PO SCH (08:01)
[2021-11-24] MEDS: TAMSULOSIN HCL 0.4 MG CAP.ER.24H PO SCH (08:01)
[2021-11-24] MEDS: LOSARTAN 25 MG TABLET PO SCH (08:01)
[2021-11-24] MEDS: Vitamin B Complex/Vit C/Folic Acid PO SCH (08:01)
[2021-11-24] MEDS: FINASTERIDE 5 MG TABLET PO SCH (08:01)
[2021-11-24] MEDS: GABAPENTIN 300 MG CAPSULE PO SCH (08:02)
[2021-11-24] MEDS: BACLOFEN 10 MG TABLET PO SCH (08:02)
[2021-11-24] MEDS: ATORVASTATIN 20 MG TABLET PO SCH (08:02)
[2021-11-24] MEDS: FAMOTIDINE 20MG TAB PO SCH (08:02)
[2021-11-24 08:23] VITALS: BP 125/70
[2021-11-24] MEDS: **HM** DUTASTERIDE 0.5MG PO SCH (08:23)
[2021-11-24] MEDS: CARVEDILOL 6.25 MG TABLET PO SCH (08:23)
[2021-11-24] MEDS: PANTOPRAZOLE 40 MG/VIAL IVP SCH (08:23)
[2021-11-25 16:09] LABS: HSV 1/2 COMBINED AB IGG CSF 5.93 IV (<=0.89); HSV TYPE 1/2 COMBINED IGM CSF 0.27 IV (<=0.89); MUMPS VIRUS IGG ANTIBODY CSF <5.0 AU/mL (<=10.9); MUMPS VIRUS IGM ANTIBODY CSF 0.11 IV (<=0.79); RUBEOLA (MEASLES) IGM CSF 0.24 AU (0.00-0.79); VARICELLA IGG ANTIBODY CSF 11.5 IV (.); WEST NILE VIRUS IGG CSF 2.15 IV (<=1.29); WEST NILE VIRUS IGM AB CSF 0.03 IV (<=0.89)
== END 2021-11-24 09:10 | disposition short-term general hospital (02) | DRG 91 ==
LOC: EDH 14:28 → EDHIP 18:05 → 3CH 11-13 16:22
PROVIDERS: ADMIT Internal Medicine; ATTEND Internal Medicine
PROC: 009U3ZX Drainage of Spinal Canal, Percutaneous Approach, Diagnostic (ICD-10-PCS; principal; 2021-11-21)
DX: G92.8 Other toxic encephalopathy (principal); J10.08 Influenza due to other identified influenza virus with other specified pneumonia; E43 Unspecified severe protein-calorie malnutrition; G61.81 Chronic inflammatory demyelinating polyneuritis; I13.0 Hypertensive heart and chronic kidney disease with heart failure and stage 1 through stage 4 chronic kidney disease, or unspecified chronic kidney disease; E86.0 Dehydration; R33.8 Other retention of urine; Z20.822 Contact with and (suspected) exposure to COVID-19; E78.5 Hyperlipidemia, unspecified; Z88.8 Allergy status to other drugs, medicaments and biological substances; N18.30 Chronic kidney disease, stage 3 unspecified; N40.1 Benign prostatic hyperplasia with lower urinary tract symptoms; G89.4 Chronic pain syndrome; I25.5 Ischemic cardiomyopathy; R54 Age-related physical debility; I50.9 Heart failure, unspecified; Z96.653 Presence of artificial knee joint, bilateral; R29.6 Repeated falls; I25.10 Atherosclerotic heart disease of native coronary artery without angina pectoris; E78.00 Pure hypercholesterolemia, unspecified; Z82.49 Family history of ischemic heart disease and other diseases of the circulatory system; Z95.1 Presence of aortocoronary bypass graft; Z95.810 Presence of automatic (implantable) cardiac defibrillator; Z82.3 Family history of stroke; Z83.3 Family history of diabetes mellitus; Z82.5 Family history of asthma and other chronic lower respiratory diseases; Z82.0 Family history of epilepsy and other diseases of the nervous system; Z90.5 Acquired absence of kidney; Z85.54 Personal history of malignant neoplasm of ureter; Z85.528 Personal history of other malignant neoplasm of kidney; Z85.46 Personal history of malignant neoplasm of prostate; Z68.29 Body mass index [BMI] 29.0-29.9, adult
CPT/HCPCS: 36415; 70450; 71045; 72125; 72126; 72131; 74176; 80048; 80053; 81001; 82140; 82550; 82607; 82728; 82746; 82945; 83540; 83550; 83690; 83735; 83880; 84145; 84157; 84439; 84443; 84481; 84484; 85025; 85610; 85651; 85730; 86140; 86694; 86735; 86765; 86787; 86788; 87071; 87088; 87147; 87205; 87483; 87635; 87804; 89051; 92610; 93005; 94640; 94664; 97039; C9113; G0378; J0696; J1100; J1170; J3411; J3420; J3490; J7042; J7050; J8540; Q0163; Q9966